=== PATIENT | female | born 1980 | race Caucasian/White ===

== ENCOUNTER 2016-09-13 15:43 | Emergency (ER) | payer SELFPAY ==
[2016-09-13 15:55] VITALS: BMI 32.2
[2016-09-13] MEDS ORDERED: OXYCODONE HCL 5 MG TABLET PO ONE (16:14)
--- NOTE | 2016-09-13 16:25 | EDPRACDOC ---
- General Information Chief Complaint: Wound Stated Complaint: WOUND CHECK Time Seen by Provider: 09/13/16 15:59 Information Source: Patient Mode Of Arrival: Car Home Medications: Home Medications Oxycodone Immediate Release [Oxycodone Immediate Release (OxyIR)] 5 mg PO Q6H PRN #20 tab 09/13/16 Allergies/Adverse Reactions: Allergies Allergy/AdvReac Type Severity Reaction Status Date / Time cefaclor [From Ceclor] Allergy Mild RASH Verified 08/02/16 11:41 codeine phosphate Allergy Hives* Verified 08/02/16 11:41 [From Tylenol-Codeine #3] hydrocodone bitartrate Allergy Hives* Verified 08/02/16 11:41 [From Vicodin] Penicillins AdvReac Severe SHORTNESS Verified 08/02/16 11:41 OF BREATHE propoxyphene napsylate AdvReac Intermediate Constipatio Verified 08/02/16 11:41 [From Darvocet-N 100] n tramadol HCl [From Ultram ER] AdvReac Intermediate Constipatio Verified 11:41 n - History of Present Illness Onset: LAST WEEK Wound Location: RIGHT FOREARM Wound Type: Laceration Wound Discharge: Purulent Previously Treated In: Other ED Current Wound Treatment: Packed, Antibiotics Last Tetanus: Yes Associated Signs and Symptoms: Pain ED Past Medical History - History Reviewed Yes Nurses notes reviewed and agree except as marked - Patient Medical History Psychological History: Reports: Substance Use Disorder (Crack Cocaine). Denies : Depression - Social Medical History Smoking Status: Heavy tobacco smoker (5 or more cigarettes/day or daily pipe/ cigar) Social History: Reports: Substance Use Disorder (Crack Cocaine) EDM Review of Systems - Review of Systems ROS Negative Except as Marked: Yes All systems reviewed and were negative except as marked - Physical Exam Constitutional: Alert Oriented to: Time, Person, Place Last recorded Vital Signs: Last Vital Signs Temp 98.5 F 09/13/16 15:54 Pulse 82 09/13/16 15:54 Resp 18 09/13/16 15:54 BP 121/63 09/13/16 15:54 Pulse Ox 97 09/13/16 15:54 Oxygen Pulse Oxygen Saturation 97 O2 Device Oxygen Flow Rate Fraction of Inspired Oxygen ( FIO2) - HEENT Head: Normal ( normocephalic) Eye Exam: Normal (PERRL, EOMI, Sclera white) Oropharynx: Normal (Pharynx:Moist without exudate,Gums-no swelling) Nose: No Symptoms Reported (septum midline) Neck: Normal (FROM, trachea at midline) - Respiratory/Cardiovascular Respiratory: Normal - CTA (BBS clear to auscultation without adventitious sounds ) Cardiovascular: Normal (RRR without murmur, gallop or rub) - GI Auscultation: Normal (NABS) Palpation: Normal (Soft,No rebound or guarding, non distended) Tenderness: Non tender He's Sign: Negative Rectal Exam: Deferred - Musculoskeletal Back: Normal (Non-Tender) Extremities: Normal (Normal tone, Pulses 2+ No cyanosis or edema, FROM) - Integumentary Skin: Normal, Warm, Dry Lymphatics: Normal (no adenopathy) - Neurologic Memory Impaired: Normal Motor Function: Normal (Normal tone, Pulses 2+ No cyanosis or edema, FROM) Cranial Nerve: Normal (CN II-X11 intact sensation, strength 5/5) Cerebellar: Normal Mood Description: Normal Perception: Normal ED Wound Check Exam - Wound Detail Wound Location: RIGHT FOREARM Healing: Well, Tenderness Discharge: Purulent Erythema: None ED Procedures - Additional Procedures Progress Note: RIGHT FOREARM WOUND UNPACKED - CLEANED AND REPACKED WITH IODOFORM GAUZE AND DRESSING - Differential Diagnosis Dressing change, Healing wound Decision Time to Discharge: 16:25 - Departure Disposition: Home Condition: Stable Final Diagnosis: Dressing change, Healing wound Instructions: Acute Wound Care (ED) Education/Counseling Given To: Patient Education/Counseling Given Regarding: Diagnosis, Treatment, Prognosis, Follow Up Referrals: Mert Nicholson II, MD [Staff Physician] - One Week Prescriptions: Oxycodone Immediate Release [Oxycodone Immediate Release (OxyIR)] 5 mg PO Q6H PRN #20 tab PRN Reason: Pain Additional Instructions: RETURN IN 3 DAYS FOR PACKING REMOVAL. CONTINUE TO TAKE YOUR ANTIBIOTICS. FOLLOW UP WITH PCP NEXT WEEK.
[2016-09-13 16:44] VITALS: BP 113/64; PULSE 73; TEMP 98.6
== END 2016-09-13 16:40 | disposition home or self-care (01) ==
LOC: EDMC 15:43
DX: S51.811D Laceration without foreign body of right forearm, subsequent encounter (principal); X58.XXXD Exposure to other specified factors, subsequent encounter
CPT/HCPCS: 99283; J3490

== ENCOUNTER 2016-09-16 11:18 | Emergency (ER) | payer SELFPAY ==
[2016-09-16 11:30] VITALS: BP 140/65; PULSE 76; TEMP 99.1; BMI 23.6
--- NOTE | 2016-09-16 11:54 | EDPRACDOC ---
- General Information Stated Complaint: PACKING REMOVAL Time Seen by Provider: 09/16/16 11:45 Information Source: Patient Home Medications: Home Medications Oxycodone Immediate Release [Oxycodone Immediate Release (OxyIR)] 5 mg PO Q6H PRN #20 tab 09/13/16 Allergies/Adverse Reactions: Allergies Allergy/AdvReac Type Severity Reaction Status Date / Time cefaclor [From Ceclor] Allergy Mild RASH Verified 09/13/16 16:23 codeine phosphate Allergy Hives* Verified 09/13/16 16:23 [From Tylenol-Codeine #3] hydrocodone bitartrate Allergy Hives* Verified 09/13/16 16:23 [From Vicodin] Penicillins AdvReac Severe SHORTNESS Verified 09/13/16 16:23 OF BREATHE propoxyphene napsylate AdvReac Intermediate Constipatio Verified 09/13/16 16:23 [From Darvocet-N 100] n tramadol HCl [From Ultram ER] AdvReac Intermediate Constipatio Verified 16:23 n - History of Present Illness Onset: 1 WEEK Wound Location: RIGHT ARM Wound Type: Other (ABSCESS) Wound Discharge: Other (SEROUS) Previously Treated In: [place] ED Current Wound Treatment: Local Treatment, Packed, Antibiotics Associated Signs and Symptoms: Pain (MILD), Other (REDNESS AND SWELLING RESOLVING) ED Past Medical History - History Reviewed Yes Nurses notes reviewed and agree except as marked Travel Outside of [place] in the Last 3 Months?: No - Patient Medical History Psychological History: Reports: Substance Use Disorder (Crack Cocaine). Denies : Depression Surgical History: Denies: Hysterectomy - Social Medical History Smoking Status: Heavy tobacco smoker (5 or more cigarettes/day or daily pipe/ cigar) Social History: Reports: Substance Use Disorder (Crack Cocaine) ETOH: None Substance Abuse: None Lives With: Other Lives In: Home EDM Review of Systems - Review of Systems ROS Negative Except as Marked: Yes All systems reviewed and were negative except as marked Constitutional: No Symptoms Reported. negative: Fever, Chills, Weakness, Fatigue, Loss of Appetite Eyes: No Symptoms Reported. negative: Redness, Blurred Vision, Double Vision, Discharge, Pain, Light Sensitive, Photophobia Ears: No Symptoms Reported. negative: Pain, Hearing Loss, Drainage, Ear Pulling Throat: No Symptoms Reported. negative: Pain, Swelling Nose: No Symptoms Reported. negative: Congestion, Bleeding, Discharge, Injection, Swelling, Deformity, Ecchymosis, Tender, Abrasion, Laceration Mouth: No Symptoms Reported. negative: Pain, Drooling Respiratory: No Symptoms Reported. negative: Cough, Brassy Cough, Barky Cough, Shortness of Breath, Wheezing, Hemoptysis Cardiovascular: No Symptoms Reported. negative: Chest Pain, Palpitations, Syncope, Edema, Orthopnea, PND, Skin Mottling, Cyanosis Gastrointestinal: No Symptoms Reported. negative: Pain, Constipation, Nausea, Vomiting, Diarrhea, Melena, Formula Intolerance Genitourinary: No Symptoms Reported. negative: Dysuria, Hematuria, Frequency, Discharge, Bleeding, Testicular Pain, Neurological: No Symptoms Reported. negative: Headache, Dizziness, Seizure, Numbness, Weakness, Speech Difficulty, Gait Difficulty Musculoskeletal: No Symptoms Reported. negative: Neck, Chestwall, Ribs, Back, Shoulder, Arm, Elbow, Forearm, Wrist, Hand, Pelvis, Hip, Femur, Knee, Leg, Ankle , Foot Integumentary: Other (RIGHT ANTECUBITAL ABSCESS - HEALING HAS PACKING IN PLACE) . negative: Bruising, Itching, Rash, Wound Allergic/Immunologic: No Symptoms Reported. negative: Hives, Itching Hematologic: No Symptoms Reported. negative: Lymphadenopathy, Easy Bruising, Easy Bleeding Endocrine: No Symptoms Reported. negative: Weight Gain, Weight Loss Psychiatric: No Symptoms Reported. negative: Anxiety, Depression, Hallucinations, Insomnia, Suicidal - Physical Exam Constitutional: Alert (Awake), No apparent distress Oriented to: Time, Person, Place Last recorded Vital Signs: Last Vital Signs Temp 99.1 F 09/16/16 11:30 Pulse 76 09/16/16 11:30 Resp 18 09/16/16 11:30 BP 140/65 09/16/16 11:30 Pulse Ox 98 09/16/16 11:30 Oxygen Pulse Oxygen Saturation 98 O2 Device Oxygen Flow Rate Fraction of Inspired Oxygen ( FIO2) - HEENT Head: Normal ( normocephalic) Eye Exam: Normal (PERRL, EOMI, Sclera white) Oropharynx: Normal (Pharynx:Moist without exudate,Gums-no swelling) Tympanic Membrane: Normal ENT EAC: Normal TMJ: Normal Nose: No Symptoms Reported (septum midline) Neck: Normal (FROM, trachea at midline) - Respiratory/Cardiovascular Respiratory: Normal - CTA (BBS clear to auscultation without adventitious sounds ) Cardiovascular: Normal (RRR without murmur, gallop or rub) - GI Auscultation: Normal (NABS) Palpation: Normal (Soft,No rebound or guarding, non distended) Tenderness: Non tender He's Sign: Negative - Musculoskeletal Back: Normal (Non-Tender) Extremities: Normal (Normal tone, Pulses 2+ No cyanosis or edema, FROM) - Integumentary Skin: Normal, Warm, Dry Lymphatics: Normal (no adenopathy) - Neurologic Memory Impaired: Normal Motor Function: Normal (Normal tone, Pulses 2+ No cyanosis or edema, FROM) Cranial Nerve: Normal (CN II-X11 intact sensation, strength 5/5) Cerebellar: Normal Mood Description: Normal Perception: Normal ED Wound Check Exam - Wound Detail Wound Location: RT MEDIAL AC FOSSA Healing: Well Discharge: Other (SEROUS) Erythema: Localized to Wound Edges ED Procedures - Additional Procedures Progress Note: ABSCESS PACKING REMOVED WITH GENTLE PRESSURE, NO BLEEDING OBSERVED. SEROUS DRAINAGE FROM WOUND APPEARS TO BE GOOD GRANULATION TISSUE. - Differential Diagnosis Abscess, Other (PACKING REMOVAL) Decision Time to Discharge: 11:55 - Departure Disposition: Home Condition: Stable Final Diagnosis: Wound check, abscess, Abscess packing removal Instructions: Wound Check Education/Counseling Given To: Patient Education/Counseling Given Regarding: Diagnosis, Treatment, Prognosis, Follow Up Referrals: None,No Provider [Primary Care Provider] - One Week Additional Instructions: RETURN FOR WORSE OR DIFFERENT SYMPTOMS.
== END 2016-09-16 12:07 | disposition home health service, planned readmission (86) ==
LOC: ED 11:18 → EDMC 12:07
DX: L02.413 Cutaneous abscess of right upper limb (principal)
CPT/HCPCS: 99282